=== PATIENT | female | born 1935 | race Caucasian/White ===

== ENCOUNTER 2022-07-19 12:45 | Inpatient (IN) | payer OTHER, MEDICAID ==
[~2022-07-19] VITALS: Ht 152.4 cm; Wt 68.0 kg
[~2022-07-19 12:45] MED LIST: ROSU5TAB PO; SITA50TA3 PO
[2022-07-19 12:50] VITALS: BP_SYST 207
[2022-07-19 13:57] LABS: BASOPHILS # (AUTO) 0.1 K/uL (0.0-0.2); BASOPHILS % (AUTO) 0.4 % (0.0-2.0); EOSINOPHILS # (AUTO) 0.1 K/uL (0.0-0.4); EOSINOPHILS % (AUTO) 0.4 % (0.0-4.0); HEMATOCRIT 42.8 % (36-48); HEMOGLOBIN 14.5 g/dL (12.0-16.0); LYMPHOCYTES # (AUTO) 1.7 K/uL (1.0-5.5); LYMPHOCYTES % (AUTO) 9.9 % (20.5-51.5); MEAN CORPUSCULAR HEMOGLOBIN 32 pg (27-31); MEAN CORPUSCULAR HGB CONC 34 % (32-36); MEAN CORPUSCULAR VOLUME 94 fL (79.0-98.0); MONOCYTES # (AUTO) 0.7 K/uL (0.0-1.0); MONOCYTES % (AUTO) 4.2 % (1.7-9.3); NEUTROPHILS # (AUTO) 14.7 K/uL (1.8-7.7); NEUTROPHILS % (AUTO) 85.1 % (40.0-70.0); PLATELET COUNT (AUTO) 196 K/uL (130-430); RED BLOOD CELL COUNT(AUTO) 4.54 MIL/uL (4.2-6.2); RED CELL DISTRIBUTION WIDTH 13.3 % (9.0-15.0); WHITE BLOOD COUNT (AUTO) 17.2 K/uL (4.8-10.8)
[2022-07-19 14:10] LABS: ANION GAP 6 (5-15); CALCIUM 9.4 mg/dL (8.4-11.0); CHLORIDE 103 mmol/L (98-107); CREATININE 0.79 mg/dL (0.55-1.30); GLUCOSE 139 mg/dL (70-99); UREA NITROGEN, BLOOD 13 mg/dL (8-21)
[2022-07-19 14:14] LABS: ALANINE AMINOTRANSFERASE 13 U/L (12-78); ALBUMIN 3.5 g/dL (3.4-4.8); ASPARTATE AMINOTRANSFERASE 12 U/L (10-37); LIPASE 189 U/L (73-393); TOTAL BILIRUBIN 0.5 mg/dL (0.0-1.0)
[2022-07-19 14:15] LABS: BILIRUBIN,URINE NEGATIVE (NEGATIVE); BLOOD, URINE NEGATIVE (NEGATIVE); COLOR,URINE YELLOW (YELLOW); GLUCOSE,URINE NEGATIVE (NEGATIVE); KETONES,URINE NEGATIVE (NEGATIVE); LEUKOCYTE ESTERASE ,URINE TRACE (NEGATIVE); NITRITE, URINE POSITIVE (NEGATIVE); PH,URINE 5.5 (5.0-8.0); PROTEIN URINE NEGATIVE (NEGATIVE); UROBILINOGEN,URINE 0.2 (0.2-1.0)
[2022-07-19] MEDS ORDERED: PANTOPRAZOLE SODIUM 40 MG/VIAL (PROTONIX) IVP ONE (14:30)
[2022-07-19 14:32] LABS: CLARITY/URINE HAZY (CLEAR)
[2022-07-19 14:33] LABS: BACTERIA,URINE MANY /HPF (None Seen); MUCUS,URINE None Seen /LPF (None Seen); RBC,URINE 0-3 /HPF (0-3)
[2022-07-19] MEDS ORDERED: cefTRIAXone 1 GM in D5W 50 ML IV ONE (16:15)
[2022-07-19] MEDS ORDERED: metroNIDAZOLE 500 mg/NS 100 ML IV ONE (16:15)
[2022-07-19] MEDS ORDERED: ONDANSETRON HCL 4 MG/2 ML VIAL IVP ONE (18:15)
[2022-07-19] MEDS ORDERED: MORPHINE 2 MG/ML INJ. SYRINGE IVP ONE ×2 (18:15→18:45)
[2022-07-19] MEDS ORDERED: cefTRIAXone 1 GM VIAL ONE (18:22)
[2022-07-19] MEDS: D5/0.45 NS 1,000 ML IV SCH (19:11)
[2022-07-19] MEDS ORDERED: PIPERACILLIN/TAZOBACTAM 4.5 GM/VIAL (ZOSYN) IV ONE (22:23)
[2022-07-19] MEDS: PIPERACILLIN/TAZO 4.5GM/DEX-IS 100 ML IV SCH (22:28)
[2022-07-20 00:10] VITALS: BP_SYST 130
[2022-07-20] MEDS ORDERED: PIPERACILLIN/TAZOBACTAM 4.5 GM/VIAL (ZOSYN) IV ONE (05:08)
[2022-07-20] MEDS: PIPERACILLIN/TAZO 4.5GM/DEX-IS 100 ML IV SCH ×3 (05:11→21:10)
[2022-07-20] MEDS ORDERED: metroNIDAZOLE 500 mg/NS 100 ML IV SCH (06:00)
[2022-07-20 06:42] LABS: BASOPHILS # (AUTO) 0.1 K/uL (0.0-0.2); BASOPHILS % (AUTO) 0.3 % (0.0-2.0); EOSINOPHILS % (AUTO) 0.1 % (0.0-4.0); HEMATOCRIT 39.7 % (36-48); HEMOGLOBIN 13.3 g/dL (12.0-16.0); LYMPHOCYTES # (AUTO) 1.4 K/uL (1.0-5.5); LYMPHOCYTES % (AUTO) 7.5 % (20.5-51.5); MEAN CORPUSCULAR HEMOGLOBIN 32 pg (27-31); MEAN CORPUSCULAR HGB CONC 33 % (32-36); MEAN CORPUSCULAR VOLUME 94 fL (79.0-98.0); MONOCYTES # (AUTO) 0.7 K/uL (0.0-1.0); MONOCYTES % (AUTO) 3.9 % (1.7-9.3); NEUTROPHILS # (AUTO) 16.9 K/uL (1.8-7.7); NEUTROPHILS % (AUTO) 88.2 % (40.0-70.0); PLATELET COUNT (AUTO) 222 K/uL (130-430); RED BLOOD CELL COUNT(AUTO) 4.22 MIL/uL (4.2-6.2); RED CELL DISTRIBUTION WIDTH 13.4 % (9.0-15.0); WHITE BLOOD COUNT (AUTO) 19.2 K/uL (4.8-10.8)
[2022-07-20 07:07] LABS: ALANINE AMINOTRANSFERASE 134 U/L (12-78); ALBUMIN 2.7 g/dL (3.4-4.8); ANION GAP 9 (5-15); ASPARTATE AMINOTRANSFERASE 124 U/L (10-37); CALCIUM 8.4 mg/dL (8.4-11.0); CHLORIDE 102 mmol/L (98-107); CHOLESTEROL 151 mg/dL (<200); CREATININE 0.88 mg/dL (0.55-1.30); GLUCOSE 189 mg/dL (70-99); HDL CHOLESTEROL 73 mg/dL (>55); THYROID STIMULATING HORMONE 1.52 uIu/mL (0.34-4.82); TOTAL BILIRUBIN 0.8 mg/dL (0.0-1.0); TRIGLYCERIDES 37 mg/dL (30-150); UREA NITROGEN, BLOOD 11 mg/dL (8-21)
[2022-07-20 08:12] VITALS: BP_SYST 136
[2022-07-20 11:45] VITALS: BP_SYST 128
[2022-07-20] MEDS: D5/0.45 NS 1,000 ML IV SCH (13:53)
[2022-07-20 15:20] VITALS: BP_SYST 130
[2022-07-20 19:00] VITALS: BP_SYST 128
[2022-07-20 20:00] VITALS: BP_SYST 128
[2022-07-20] MEDS ORDERED: NALOXONE HCL 0.4 MG/ML AMP (NARCAN) IVP PRN ×2 (20:00)
[2022-07-20] MEDS ORDERED: MORPHINE 2 MG/ML INJ. SYRINGE IVP PRN ×2 (20:00)
[2022-07-20] MEDS ORDERED: ACETAMINOPHEN 325 MG TABLET PO PRN (20:00)
[2022-07-20] MEDS ORDERED: TEMAZEPAM 15 MG CAPSULE PO PRN (20:15)
[2022-07-21 00:16] VITALS: BP_SYST 131
[2022-07-21] MEDS: PIPERACILLIN/TAZO 4.5GM/DEX-IS 100 ML IV SCH ×2 (05:01→21:03)
[2022-07-21] MEDS: D5/0.45 NS 1,000 ML IV SCH (05:01)
[2022-07-21 08:03] LABS: ANION GAP 7 (5-15); CALCIUM 8.4 mg/dL (8.4-11.0); CHLORIDE 102 mmol/L (98-107); CREATININE 0.92 mg/dL (0.55-1.30); GLUCOSE 169 mg/dL (70-99); UREA NITROGEN, BLOOD 8 mg/dL (8-21)
[2022-07-21 08:07] VITALS: BP_SYST 135
[2022-07-21 08:15] LABS: ALBUMIN 2.3 g/dL (3.4-4.8); AMYLASE 27 U/L (0-100); ASPARTATE AMINOTRANSFERASE 25 U/L (10-37); CHOLESTEROL 129 mg/dL (<200); HDL CHOLESTEROL 65 mg/dL (>55); LIPASE 45 U/L (73-393); TOTAL BILIRUBIN 0.9 mg/dL (0.0-1.0); TRIGLYCERIDES 67 mg/dL (30-150)
[2022-07-21 08:28] LABS: BASOPHILS % (AUTO) 0.2 % (0.0-2.0); EOSINOPHILS # (AUTO) 0.2 K/uL (0.0-0.4); EOSINOPHILS % (AUTO) 1.1 % (0.0-4.0); HEMATOCRIT 37.8 % (36-48); HEMOGLOBIN 12.9 g/dL (12.0-16.0); LYMPHOCYTES # (AUTO) 1.3 K/uL (1.0-5.5); LYMPHOCYTES % (AUTO) 8.5 % (20.5-51.5); MEAN CORPUSCULAR HEMOGLOBIN 32 pg (27-31); MEAN CORPUSCULAR HGB CONC 34 % (32-36); MEAN CORPUSCULAR VOLUME 94 fL (79.0-98.0); MONOCYTES # (AUTO) 0.5 K/uL (0.0-1.0); MONOCYTES % (AUTO) 3.3 % (1.7-9.3); NEUTROPHILS # (AUTO) 13.5 K/uL (1.8-7.7); NEUTROPHILS % (AUTO) 86.9 % (40.0-70.0); PLATELET COUNT (AUTO) 186 K/uL (130-430); RED BLOOD CELL COUNT(AUTO) 4.03 MIL/uL (4.2-6.2); RED CELL DISTRIBUTION WIDTH 13.3 % (9.0-15.0); WHITE BLOOD COUNT (AUTO) 15.6 K/uL (4.8-10.8)
[2022-07-21 08:57] LABS: ALANINE AMINOTRANSFERASE 58 U/L (12-78)
[2022-07-21 11:07] LABS: INR 1.2 (0.8-1.2); PROTHROMBIN TIME 11.6 SECS (9.5-12.5)
[2022-07-21 11:10] VITALS: BP_SYST 135
[2022-07-21] MEDS ORDERED: DEXAMETHASONE SOD PHOSPHATE 4 MG/ML VIAL ONE (12:23)
[2022-07-21] MEDS ORDERED: ONDANSETRON HCL 4 MG/2 ML VIAL ONE (12:23)
[2022-07-21] MEDS ORDERED: HYDROmorphone 2 MG/ML VIAL ONE (12:23)
[2022-07-21] MEDS ORDERED: LR 1,000 ML IV.SOLN IV ONE (12:23)
[2022-07-21] MEDS ORDERED: PROPOFOL 200MG/ 20ML VIAL (DIPRIVAN) IV ONE (12:23)
[2022-07-21] MEDS ORDERED: DESFLURANE 15 MIN GAS INH ONE (12:23)
[2022-07-21] MEDS ORDERED: fentaNYL CITRATE/PF 100 MCG/2 ML AMP ONE (12:23)
[2022-07-21] MEDS ORDERED: PIPERACILLIN/TAZOBACTAM 4.5 GM/VIAL (ZOSYN) IV ONE (12:23)
[2022-07-21] MEDS ORDERED: LABETALOL 100 MG/ 20ML VIAL ONE (12:23)
[2022-07-21] MEDS ORDERED: NS IRRIG SOLN 1000 ML IR ONE (12:23)
[2022-07-21] MEDS ORDERED: SUCCINYLCHOLINE CHLORIDE 20 MG/ML(QUELICIN) ONE (12:23)
[2022-07-21] MEDS ORDERED: ROCURONIUM BROMIDE 10 MG/ML (ZEMURON) ONE (12:23)
[2022-07-21] MEDS ORDERED: SUGAMMADEX SODIUM 200 MG/2 ML VIAL IV ONE (12:23)
[2022-07-21] MEDS ORDERED: ACETAMINOPHEN I.V. 1000 MG 100 ML IV ONE (13:13)
[2022-07-21] MEDS ORDERED: ONDANSETRON HCL 4 MG/2 ML VIAL IVP PRN ×2 (13:15→14:15)
[2022-07-21] MEDS ORDERED: NALOXONE HCL 0.4 MG/ML AMP (NARCAN) IVP PRN ×2 (13:15)
[2022-07-21] MEDS ORDERED: HYDROmorphone 2 MG/ML VIAL IVP PRN (13:15)
[2022-07-21] MEDS ORDERED: HYDROmorphone 1 MG/ML INJ. CARTRIDGE IVP PRN ×2 (13:15)
[2022-07-21] MEDS ORDERED: BUPIVACAINE LIPOSOME/PF 266 MG/20 ML VIAL INFIL ONE (13:48)
[2022-07-21 16:47] VITALS: BP_SYST 135
[2022-07-21 20:00] VITALS: BP_SYST 152
[2022-07-21] MEDS: NACL 0.9% 1,000 ML IV SCH (21:04)
[2022-07-22] MEDS: NACL 0.9% 1,000 ML IV SCH ×2 (00:15→08:23)
[2022-07-22 01:02] VITALS: BP_SYST 159
[2022-07-22] MEDS: KETOROLAC TROMETHAMINE 15 MG VIAL IVP PRN (04:31)
[2022-07-22] MEDS: PIPERACILLIN/TAZO 4.5GM/DEX-IS 100 ML IV SCH ×3 (05:49→22:16)
[2022-07-22 06:02] LABS: BASOPHILS % (AUTO) 0.1 % (0.0-2.0); HEMATOCRIT 38.8 % (36-48); HEMOGLOBIN 13.1 g/dL (12.0-16.0); LYMPHOCYTES # (AUTO) 0.8 K/uL (1.0-5.5); LYMPHOCYTES % (AUTO) 5.8 % (20.5-51.5); MEAN CORPUSCULAR HEMOGLOBIN 32 pg (27-31); MEAN CORPUSCULAR HGB CONC 34 % (32-36); MEAN CORPUSCULAR VOLUME 95 fL (79.0-98.0); MONOCYTES # (AUTO) 0.4 K/uL (0.0-1.0); MONOCYTES % (AUTO) 3.1 % (1.7-9.3); NEUTROPHILS # (AUTO) 13.2 K/uL (1.8-7.7); PLATELET COUNT (AUTO) 209 K/uL (130-430); RED BLOOD CELL COUNT(AUTO) 4.08 MIL/uL (4.2-6.2); RED CELL DISTRIBUTION WIDTH 13.2 % (9.0-15.0); WHITE BLOOD COUNT (AUTO) 14.5 K/uL (4.8-10.8)
[2022-07-22 06:25] LABS: ALANINE AMINOTRANSFERASE 50 U/L (12-78); ALBUMIN 2.3 g/dL (3.4-4.8); ANION GAP 7 (5-15); ASPARTATE AMINOTRANSFERASE 17 U/L (10-37); CALCIUM 8.8 mg/dL (8.4-11.0); CHLORIDE 103 mmol/L (98-107); CREATININE 0.89 mg/dL (0.55-1.30); GLUCOSE 189 mg/dL (70-99); TOTAL BILIRUBIN 0.6 mg/dL (0.0-1.0); UREA NITROGEN, BLOOD 9 mg/dL (8-21)
[2022-07-22 08:00] VITALS: BP_SYST 160
[2022-07-22] MEDS: D5/0.45 NS 1,000 ML IV SCH ×2 (09:15→16:17)
[2022-07-22 12:30] VITALS: BP_SYST 161
[2022-07-22 16:27] VITALS: BP_SYST 157
[2022-07-22 19:00] VITALS: BP_SYST 122
[2022-07-22 20:00] VITALS: BP_SYST 156
[2022-07-23] VITALS: BP_SYST 156
[2022-07-23] MEDS: D5/0.45 NS 1,000 ML IV SCH ×3 (01:15→17:24)
[2022-07-23] MEDS: PIPERACILLIN/TAZO 4.5GM/DEX-IS 100 ML IV SCH ×2 (05:26→14:27)
[2022-07-23 08:00] VITALS: BP_SYST 150
[2022-07-23 08:57] LABS: BASOPHILS % (AUTO) 0.3 % (0.0-2.0); EOSINOPHILS # (AUTO) 0.2 K/uL (0.0-0.4); EOSINOPHILS % (AUTO) 1.8 % (0.0-4.0); HEMATOCRIT 33.8 % (36-48); HEMOGLOBIN 11.6 g/dL (12.0-16.0); LYMPHOCYTES # (AUTO) 1.3 K/uL (1.0-5.5); LYMPHOCYTES % (AUTO) 12.4 % (20.5-51.5); MEAN CORPUSCULAR HEMOGLOBIN 32 pg (27-31); MEAN CORPUSCULAR HGB CONC 34 % (32-36); MEAN CORPUSCULAR VOLUME 94 fL (79.0-98.0); MONOCYTES # (AUTO) 0.8 K/uL (0.0-1.0); MONOCYTES % (AUTO) 7.6 % (1.7-9.3); NEUTROPHILS # (AUTO) 8.2 K/uL (1.8-7.7); NEUTROPHILS % (AUTO) 77.9 % (40.0-70.0); PLATELET COUNT (AUTO) 213 K/uL (130-430); RED BLOOD CELL COUNT(AUTO) 3.59 MIL/uL (4.2-6.2); RED CELL DISTRIBUTION WIDTH 12.8 % (9.0-15.0); WHITE BLOOD COUNT (AUTO) 10.5 K/uL (4.8-10.8)
[2022-07-23 11:45] VITALS: BP_SYST 142
[2022-07-23 16:20] VITALS: BP_SYST 152
[2022-07-23] MEDS: cefTRIAXone 1 GM in D5W 50 ML IV SCH (17:24)
[2022-07-23] MEDS: metroNIDAZOLE 500 mg/NS 100 ML IV SCH (18:01)
[2022-07-23 20:21] VITALS: BP_SYST 177
[2022-07-24] VITALS: BP_SYST 149
[2022-07-24] MEDS: D5/0.45 NS 1,000 ML IV SCH ×3 (02:12→17:15)
[2022-07-24] MEDS: metroNIDAZOLE 500 mg/NS 100 ML IV SCH ×2 (06:11→19:43)
[2022-07-24 07:10] LABS: BASOPHILS # (AUTO) 0.1 K/uL (0.0-0.2); BASOPHILS % (AUTO) 0.7 % (0.0-2.0); EOSINOPHILS # (AUTO) 0.4 K/uL (0.0-0.4); EOSINOPHILS % (AUTO) 4.8 % (0.0-4.0); HEMATOCRIT 35.3 % (36-48); HEMOGLOBIN 12.1 g/dL (12.0-16.0); LYMPHOCYTES # (AUTO) 1.3 K/uL (1.0-5.5); LYMPHOCYTES % (AUTO) 16.6 % (20.5-51.5); MEAN CORPUSCULAR HEMOGLOBIN 32 pg (27-31); MEAN CORPUSCULAR HGB CONC 34 % (32-36); MEAN CORPUSCULAR VOLUME 94 fL (79.0-98.0); MONOCYTES # (AUTO) 0.9 K/uL (0.0-1.0); MONOCYTES % (AUTO) 11.3 % (1.7-9.3); NEUTROPHILS # (AUTO) 5.2 K/uL (1.8-7.7); NEUTROPHILS % (AUTO) 66.6 % (40.0-70.0); PLATELET COUNT (AUTO) 224 K/uL (130-430); RED BLOOD CELL COUNT(AUTO) 3.76 MIL/uL (4.2-6.2); RED CELL DISTRIBUTION WIDTH 12.9 % (9.0-15.0); WHITE BLOOD COUNT (AUTO) 7.8 K/uL (4.8-10.8)
[2022-07-24 07:45] LABS: ANION GAP 10 (5-15); CALCIUM 8.2 mg/dL (8.4-11.0); CHLORIDE 103 mmol/L (98-107); CREATININE 0.75 mg/dL (0.55-1.30); GLUCOSE 220 mg/dL (70-99); UREA NITROGEN, BLOOD 5 mg/dL (8-21)
[2022-07-24] MEDS ORDERED: KCL 20 mEq in NS 1000 mL 1,000 ML IV ONE (10:15)
[2022-07-24] MEDS ORDERED: POTASSIUM CHLORIDE 20 MEQ TAB.PRT.SR PO ONE (10:30)
[2022-07-24 11:39] VITALS: BP_SYST 160
[2022-07-24] MEDS: cefTRIAXone 1 GM in D5W 50 ML IV SCH (16:34)
[2022-07-24 17:24] VITALS: BP_SYST 186
[2022-07-24 21:15] VITALS: BP_SYST 182
[2022-07-25] VITALS: BP_SYST 152
[2022-07-25] MEDS: metroNIDAZOLE 500 mg/NS 100 ML IV SCH ×2 (05:31→16:57)
[2022-07-25] MEDS: KETOROLAC TROMETHAMINE 15 MG VIAL IVP PRN (07:57)
[2022-07-25 08:00] VITALS: BP_SYST 170
[2022-07-25 09:43] VITALS: BP_SYST 136
[2022-07-25] MEDS ORDERED: POTASSIUM CHLORIDE 20 MEQ/PKT PACKET PO ONE (11:15)
[2022-07-25 12:00] VITALS: BP_SYST 158
[2022-07-25 16:00] VITALS: BP_SYST 138
[2022-07-25] MEDS: cefTRIAXone 1 GM in D5W 50 ML IV SCH (16:19)
[2022-07-25 20:15] VITALS: BP_SYST 161
[2022-07-26 01:00] VITALS: BP_SYST 165
[2022-07-26] MEDS: metroNIDAZOLE 500 mg/NS 100 ML IV SCH ×2 (05:58→17:27)
[2022-07-26 07:12] LABS: BASOPHILS # (AUTO) 0.1 K/uL (0.0-0.2); EOSINOPHILS # (AUTO) 0.1 K/uL (0.0-0.4); HEMATOCRIT 36.4 % (36-48); HEMOGLOBIN 12.8 g/dL (12.0-16.0); LYMPHOCYTES # (AUTO) 0.9 K/uL (1.0-5.5); LYMPHOCYTES % (AUTO) 10.6 % (20.5-51.5); MEAN CORPUSCULAR HEMOGLOBIN 33 pg (27-31); MEAN CORPUSCULAR HGB CONC 35 % (32-36); MEAN CORPUSCULAR VOLUME 93 fL (79.0-98.0); MONOCYTES % (AUTO) 12.1 % (1.7-9.3); NEUTROPHILS # (AUTO) 6.5 K/uL (1.8-7.7); NEUTROPHILS % (AUTO) 75.3 % (40.0-70.0); PLATELET COUNT (AUTO) 272 K/uL (130-430); RED BLOOD CELL COUNT(AUTO) 3.93 MIL/uL (4.2-6.2); WHITE BLOOD COUNT (AUTO) 8.6 K/uL (4.8-10.8)
[2022-07-26 07:25] VITALS: BP_SYST 169
[2022-07-26 07:51] LABS: ANION GAP 12 (5-15); CALCIUM 8.2 mg/dL (8.4-11.0); CHLORIDE 97 mmol/L (98-107); CREATININE 0.64 mg/dL (0.55-1.30); GLUCOSE 102 mg/dL (70-99); UREA NITROGEN, BLOOD 10 mg/dL (8-21)
[2022-07-26] MEDS ORDERED: POTASSIUM CHLORIDE 20 MEQ TAB.PRT.SR PO ONE (10:15)
[2022-07-26 12:00] VITALS: BP_SYST 148
[2022-07-26 16:00] VITALS: BP_SYST 101; BP_SYST 124; BP_SYST 128
[2022-07-26] MEDS: cefTRIAXone 1 GM in D5W 50 ML IV SCH (16:42)
[2022-07-26 17:39] VITALS: BP_SYST 124
== END 2022-07-26 18:45 | disposition home health service (06) | DRG 853 ==
LOC: SED 12:45 → STU 19:19 → SMU 07-26 12:20
PROVIDERS: ADMIT Internal Medicine; ATTEND Internal Medicine
PROC: 0D9670Z Drainage of Stomach with Drainage Device, Via Natural or Artificial Opening (ICD-10-PCS; 2022-07-21)
PROC: 0DB80ZZ Excision of Small Intestine, Open Approach (ICD-10-PCS; 2022-07-21)
PROC: 0DN80ZZ Release Small Intestine, Open Approach (ICD-10-PCS; principal; 2022-07-21 12:24)
DX: A41.9 Sepsis, unspecified organism (principal); K27.5 Chronic or unspecified peptic ulcer, site unspecified, with perforation; K63.1 Perforation of intestine (nontraumatic); K65.9 Peritonitis, unspecified; N39.0 Urinary tract infection, site not specified; E78.5 Hyperlipidemia, unspecified; K52.89 Other specified noninfective gastroenteritis and colitis; Z20.822 Contact with and (suspected) exposure to COVID-19; B96.1 Klebsiella pneumoniae [K. pneumoniae] as the cause of diseases classified elsewhere; G89.29 Other chronic pain; I10 Essential (primary) hypertension; Z88.5 Allergy status to narcotic agent; Z79.899 Other long term (current) drug therapy; Z90.49 Acquired absence of other specified parts of digestive tract; Z85.43 Personal history of malignant neoplasm of ovary; Z90.710 Acquired absence of both cervix and uterus; Z87.891 Personal history of nicotine dependence; K52.9 Noninfective gastroenteritis and colitis, unspecified
CPT/HCPCS: 36415; 71045; 74018; 76376; 80048; 80053; 80061; 81000; 82150; 83690; 83880; 84132; 84443; 84484; 85025; 85610-TC; 85730-TC; 86886; 86900; 86901; 87040; 87070; 87070-TC; 87075-TC; 87081; 87086; 87101; 88305; 88307; 93005; 93306; 96365; 96368; 96375; 97112-GP; 97116-GP; 97530-GP; 99285; C9290; G0378; J0131; J0330; J0696; J1100; J1170; J1885; J2270; J2405; J2543; J2704; J3010; J3480; J3490; J7060; J7120

== ENCOUNTER 2023-01-01 08:30 | Emergency (ER) | payer OTHER, MEDICAID ==
[~2023-01-01] VITALS: Ht 152.4 cm; Wt 65.3 kg
[2023-01-01 08:43] VITALS: BP_SYST 139; PULSE 74; RESP 20; TEMP 97.6; O2SAT 100
--- NOTE | 2023-01-01 08:55 | NUR ---
Patient to ER bed 5 to gown for evaluation. Side rails up. Report given to LAURITA TRIVEDI.
--- NOTE | 2023-01-01 09:20 | NUR ---
Pt [id number] reports hx fall 6 months ago and hurt Rt wrist. C/o onset Rt wrist swelling and redness x 24 hrs along with limited ROM. Was hospitalized approx 5 mo ago for ABD sx. Pt lives at [facility]. Pt stable, no s/s distress. Bed at lowest position. Son at bedside.
--- NOTE | 2023-01-01 09:40 | NUR ---
Dr. Kendrick at bedside.
[2023-01-01 10:17] VITALS: O2SAT 100
[2023-01-01 11:23] VITALS: BP_SYST 138; PULSE 86; RESP 16; TEMP 97
--- NOTE | 2023-01-01 11:26 | NUR ---
Icepack provided, Rt arm elevated. No s/s distress. Bed at lowest position, side rails up.
--- NOTE | 2023-01-01 11:26 | NUR ---
Patient given written and verbal discharge instructions and verbalizes understanding. ER MD discussed with patient the results and treatment provided. Patient in stable condition. ID arm band removed. Patient educated on pain management and to follow up with PMD within 1 week. Pain Scale . Opportunity for questions provided and answered. Medication side effect fact sheet provided.
== END 2023-01-01 11:26 | disposition home or self-care (01) ==
LOC: SED 08:30
DX: S63.501A Unspecified sprain of right wrist, initial encounter (principal); I10 Essential (primary) hypertension; E78.5 Hyperlipidemia, unspecified; Z88.5 Allergy status to narcotic agent; Z79.899 Other long term (current) drug therapy; X58.XXXA Exposure to other specified factors, initial encounter; Y93.89 Activity, other specified; Y92.89 Other specified places as the place of occurrence of the external cause; Y99.8 Other external cause status
CPT/HCPCS: 99283

== ENCOUNTER 2023-04-04 14:24 | Emergency (ER) | payer OTHER, MEDICAID ==
[~2023-04-04] VITALS: Ht 152.4 cm; Wt 59.0 kg
[2023-04-04 14:40] VITALS: BP_SYST 134; BP_SYST 160; PULSE 102; PULSE 88; RESP 20; TEMP 98.3; O2SAT 98
[2023-04-04] MEDS ORDERED: KETOROLAC TROMETHAMINE 30 MG VIAL IM ONE (15:00)
[2023-04-04 18:13] VITALS: BP_SYST 162; PULSE 73; RESP 18; TEMP 98.3; O2SAT 97
== END 2023-04-04 18:11 | disposition home or self-care (01) ==
LOC: SED 14:24
DX: M54.30 Sciatica, unspecified side (principal); G89.29 Other chronic pain; M54.50 Low back pain, unspecified; M79.662 Pain in left lower leg; I10 Essential (primary) hypertension; Z88.5 Allergy status to narcotic agent; Z79.899 Other long term (current) drug therapy
CPT/HCPCS: 99285; 93970; 73502; 73564; 96372; J1885

== ENCOUNTER 2023-06-25 10:08 | Emergency (ER) | payer OTHER, MEDICAID ==
[~2023-06-25] VITALS: Ht 154.9 cm; Wt 56.7 kg
[2023-06-25 11:01] VITALS: BP_SYST 116; PULSE 79; RESP 17; TEMP 97.9; O2SAT 96
[2023-06-25] MEDS ORDERED: AUG875 PO (11:04)
[2023-06-25 11:11] VITALS: BP_SYST 116; PULSE 79; RESP 17; TEMP 97.9; O2SAT 96
[2023-06-25] MEDS ORDERED: hydrALAZINE HCL 20 MG/ML VIAL IVP ONE (11:15)
== END 2023-06-25 11:12 | disposition home or self-care (01) ==
LOC: SED 10:08
DX: H66.92 Otitis media, unspecified, left ear (principal); Z88.5 Allergy status to narcotic agent; I10 Essential (primary) hypertension; Z79.899 Other long term (current) drug therapy
CPT/HCPCS: 99282

== ENCOUNTER 2023-07-03 11:57 | Emergency (ER) | payer OTHER, MEDICAID ==
[~2023-07-03] VITALS: Ht 152.4 cm; Wt 62.6 kg
[~2023-07-03 11:57] MED LIST changes: +AUG875 PO
[2023-07-03 12:00] VITALS: BP_SYST 172; PULSE 80; RESP 18; TEMP 97; O2SAT 97
[2023-07-03] MEDS ORDERED: CEFU250T85 PO (12:24)
[2023-07-03] MEDS ORDERED: ACET1TAB93 PO (12:24)
[2023-07-03] MEDS ORDERED: CIPR10DR17 OT (12:24)
[2023-07-03 12:38] VITALS: BP_SYST 145; PULSE 87; RESP 15; TEMP 98.1; O2SAT 96
== END 2023-07-03 12:37 | disposition home or self-care (01) ==
LOC: SED 11:57
DX: H66.92 Otitis media, unspecified, left ear (principal); I10 Essential (primary) hypertension; Z88.5 Allergy status to narcotic agent; Z79.899 Other long term (current) drug therapy
CPT/HCPCS: 99283